=== PATIENT | female | born 1960 | race Caucasian/White ===

== ENCOUNTER 2017-01-18 10:16 | Day surgery (SDC) | payer OTHER ==
[~2017-01-18] VITALS: Ht 162.6 cm; Wt 75.7 kg
[2017-01-18 11:00] VITALS: Ht 162.6 cm; Wt 75.7 kg
[2017-01-18] MEDS ORDERED: SIMVASTATIN (11:05)
[2017-01-18] MEDS ORDERED: IBUPROFEN (11:05)
[2017-01-18] MEDS ORDERED: OMEPRAZOLE (11:05)
[2017-01-18 11:32] VITALS: BP 141/68; PULSE 70; RESP 17
[2017-01-18] MEDS ORDERED: MIDAZOLAM 1 MG/ML 2 ML INJ ONE ×3 (12:26→12:27)
[2017-01-18] MEDS ORDERED: FENTAnyl 50 MCG/ML VIAL ONE (12:27)
--- NOTE | 2017-01-18 12:29 | OPPN ---
Date/Time of Note Date/Time of Note DATE: 01/18/17 TIME: 12:26 Operative Report Preoperative Diagnosis Abdominal pain Iron deficiency anemia Postoperative Diagnosis Gastritis with erosions Gastric mucosal biopsies were taken for H. pylori test Small bowel biopsies were taken to rule out celiac disease Internal hemorrhoids Operation/Procedure Performed Esophagogastroduodenoscopy and biopsy Colonoscopy Provider: GIGI MALDONADO MD Anesthesia Type: moderate sedation Estimated blood loss: none Transfusion Required: no Specimens Gastric biopsy Small bowel biopsy Grafts/Implants: none Complications: no GIGI MALDONADO MD Jan 18, 2017 12:29
[2017-01-18 12:40] VITALS: BP 137/69; PULSE 72; RESP 18
--- NOTE | 2017-01-18 14:00 | GILP ---
DATE OF PROCEDURE: 01/18/2017 PROCEDURE PERFORMED: 1. Esophagogastroduodenoscopy and biopsy. 2. Colonoscopy. SURGEON: Wyatt Otto MD PREOPERATIVE DIAGNOSES: 1. Abdominal pain. 2. Iron deficiency anemia. POSTOPERATIVE DIAGNOSES: 1. Gastritis with erosions. 2. Gastric mucosal biopsies were taken for Helicobacter pylori test. 3. Small bowel biopsies were taken to rule out celiac disease. 4. Colonoscopy all the way to the cecum. 5. Internal hemorrhoids. 6. No colon neoplasm was identified. INDICATION: Ms Mackenzie Enamorado is a 55-year-old female patient who had upper abdominal pain not responding to therapy. She also had iron-deficiency anemia. The procedures and possible complications were well explained to the patient. She understood and consented to the procedure. DESCRIPTION OF PROCEDURE: Under influence of fentanyl and Versed, the gastroscope was carefully introduced into the esophagus. Under direct vision it was advanced to the stomach, into the pylorus, into the duodenal bulb and descending duodenum. Esophagus: Mucosa was normal. Stomach: The patient had gastritis with erosions. Gastric mucosal biopsies were taken for Helicobacter pylori test. Duodenum: Normal. Small bowel biopsies were taken to rule out celiac disease. The colonoscope was carefully introduced in the rectum. Under direct vision it was advanced all the way to the cecum. Findings: The patient had internal hemorrhoids. No colon neoplasm was identified. She tolerated the procedures very well. There was no complication from the procedures. At the end of procedure she was awake with stable vital signs and she was discharged home in care of her family. IMPRESSION: Please see postop diagnoses. PLAN: 1. Continue omeprazole q.a.m. 2. Add Zantac 300 mg p.o. nightly 3. Await histopathology reports. 4. Next screening colonoscopy in 10 years. Dictated By: MD RAYMOND Iniguez/deonte/nanci /Document#: [id number]
== END 2017-01-18 14:26 | disposition home or self-care (01) ==
LOC: GIL 10:16
PROVIDERS: ATTEND Internal Medicine Gastroenterology
DX: K29.70 Gastritis, unspecified, without bleeding (principal); K64.8 Other hemorrhoids; E78.5 Hyperlipidemia, unspecified
CPT/HCPCS: 43239; 45378; J2250; J3010; Z7610; 87081; 88305